=== PATIENT | female | born 1975 | race Caucasian/White ===

== ENCOUNTER → 2018-06-07 06:33 | Outpatient (CLI) | payer BC ==
[2018-06-07 07:29] LABS: ALBUMIN 4.2 g/dL (3.4-5.0); ANION GAP 14.3 mmol/L (8-16); BILIRUBIN - TOTAL 0.99 mg/dL (0.2-1.3); CALCIUM 8.7 mg/dL (8.5-10.1); CREATININE - SERUM 1.1 mg/dL (0.6-1.3); POTASSIUM - SERUM 4.3 mmol/L (3.5-5.1); PROTEIN - SERUM 8.2 g/dL (6.4-8.2)
== END | disposition home or self-care (01) ==
LOC: D.MRI 06:33
PROVIDERS: Internal Medicine Gastroenterology
DX: R50.9 Fever, unspecified (principal); R10.9 Unspecified abdominal pain; K80.80 Other cholelithiasis without obstruction; R93.89 Abnormal findings on diagnostic imaging of other specified body structures

== ENCOUNTER 2018-06-15 09:00 | Day surgery (SDC) | payer BC ==
[2018-06-13 14:42] LABS: BASOPHILS 0.2 % (0-2); EOSINOPHILS 0.6 % (0-7); HEMATOCRIT 40.4 % (36.0-48.0); HEMOGLOBIN 14.3 g/dL (12-16); IMMATURE GRANULOCYTES 0.2 % (0-5); LYMPHOCYTES 31.6 % (15-50); MCH 31.8 pg (26.0-34.0); MCHC 35.4 g/dL (31.0-37.0); MCV 89.8 fL (80.0-100.0); MEAN PLATELET VOLUME 9.9 fL (7.4-10.4); MONOCYTES 9.3 % (2-11); NEUTROPHILS 58.1 % (40-80); PLATELET COUNT 283 10x3/uL (130-400); RDW 12.5 % (11.5-14.5); WBC 6.4 10x3/uL (4.8-10.8)
[2018-06-13 14:51] LABS: ANION GAP 10.7 mmol/L (8-16); CALCIUM 8.4 mg/dL (8.5-10.1); POTASSIUM - SERUM 3.7 mmol/L (3.5-5.1)
[~2018-06-15] VITALS: Ht 157.5 cm; Wt 63.5 kg
[~2018-06-15 09:00] MED LIST: VICTOZA0.6 MG/0.1 SQ
[2018-06-15 09:36] VITALS: BP 109/76; Ht 157.5 cm; Wt 63.5 kg
[2018-06-15 10:21] LABS: CALCIUM 8.5 mg/dL (8.5-10.1); CARBON DIOXIDE 28.9 mmol/L (21.0-32.0); CREATININE - SERUM 0.9 mg/dL (0.6-1.3); POTASSIUM - SERUM 3.9 mmol/L (3.5-5.1)
[2018-06-15] MEDS ORDERED: NORCO 10-325 TA1 TAB PO (11:07)
--- NOTE | 2018-06-15 13:37 | NUR ---
PT LEFT UNIT VIA WC AT 1335
--- NOTE | 2018-06-16 16:36 | OP ---
PATIENT NAME: BAUTISTA STALEY MEDICAL RECORD: [id number] :77 LOCATION:[facility] ADMISSION DATE: SURGEON: MUSTAPHA NEGRO MD DATE OF OPERATION: 06/15/2018 PREOPERATIVE DIAGNOSES: 1. Gallstones. 2. Pelvic fluid collection. 3. Diabetes mellitus. POSTOPERATIVE DIAGNOSES: 1. Gallstones. 2. Pelvic fluid collection. 3. Diabetes mellitus. PROCEDURES: 1. Laparoscopic cholecystectomy. 2. Pelvic laparoscopic lysis of adhesions. SURGEON: Mustapha Negro MD REPORT OF PROCEDURE: The patient's abdomen was prepped and draped in sterile fashion. A cutdown was made on the superior aspect of the umbilicus. The 0 Vicryls were placed in the fascia bilaterally and the fascia was incised with a 15-blade. I then bluntly entered the peritoneal cavity and placed a 12-mm Americo port. Under direct visualization, a 5-mm trocar was placed in the epigastrium and 2 more 5-mm trocars were placed in the right subcostal region. The gallbladder was elevated. There were no inflammatory changes present. The cystic artery and cystic duct were dissected free. These were clipped proximally and distally and ligated in standard fashion. The gallbladder was taken off the liver bed using electrocautery and placed into the right upper quadrant. Any bleeding from the liver bed was then treated with electrocautery. At this point, the ports and insufflation were then removed and the gallbladder was taken out through the umbilicus. We reinserted the Americo port. We inspected the patient's pelvis. There were some adhesions that were present. Mainly, these were of the appendix epiploica and the surrounding fatty tissue to the pelvic doll. This was taken down carefully with sharp dissection. We were able to get into the pelvis and I can see the plane between the rectum and the bladder. There was a little bit of fluid that was there, it did not appear to be infectious. The fluid was more of a physiologic fluid than anything else. I did not find any abscess cavities or pockets. We had the rectum freely mobile. The proximal rectum and distal sigmoid colon were adherent to the left lateral side wall of the pelvis, but this did not appear to be an area of concern from previous CT scan. I went ahead and left this in position. I felt confident there were no other fluid cavities that were there. The bladder itself appeared to be normal with no signs of inflammatory changes. At this point, the ports and insufflation were then removed. The umbilical fascia was closed with interrupted 0 Vicryls times 3. The wounds were then irrigated out with normal saline and infused with 10 mL of 0.25% Marcaine with epinephrine. The skin incisions were all closed with subcutaneous 5-0 Monocryl and dressed appropriately. COMPLICATIONS: None. CONDITION: Stable. OPERATIVE REPORT [id number] BAUTISTA STALEY ANESTHESIA: General endotracheal and local. BLOOD LOSS: Minimal. TRANSINT:[id number] Voice Confirmation ID: [id number] DOCUMENT ID: [id number] CC: Dr. Myriam Velazquez MUSTAPHA NEGRO MD at 1636 CC: DR. MYRIAM VELAZQUEZ and MOI PULIDO MD [id number] DICTATION DATE: 06/15/18 1116 LOCK EXPERT: 06/15/18 1354 [facility] 06/15/18 [place] [id number] [place] [address]
== END 2018-06-15 13:35 | disposition home or self-care (01) ==
LOC: D.OPS 09:00 → D.PAN 11:45 → D.OPS 11:45
PROVIDERS: Anesthesiology; Surgery
DX: K80.20 Calculus of gallbladder without cholecystitis without obstruction (principal); N73.6 Female pelvic peritoneal adhesions (postinfective); Z01.812 Encounter for preprocedural laboratory examination; E11.9 Type 2 diabetes mellitus without complications

== ENCOUNTER 2018-09-29 19:00 | Outpatient (CLI) | payer BC ==
[2018-06-15 09:36] VITALS: BMI 25.6
[~2018-09-29 19:00] MED LIST changes: +NORCO 10-325 TA1 TAB PO
== END 2018-09-29 23:59 | disposition home or self-care (01) ==
LOC: D.MAMMO 19:00
PROVIDERS: ATTEND Family Medicine
DX: Z12.31 Encounter for screening mammogram for malignant neoplasm of breast (principal)

== ENCOUNTER → 2019-02-13 14:14 | Outpatient (CLI) | payer BC ==
[2018-06-15 09:36] VITALS: BMI 25.6
[2019-02-13 15:16] LABS: CREATININE - SERUM 0.9 mg/dL (0.6-1.3)
== END | disposition home or self-care (01) ==
LOC: D.MRI 14:14
PROVIDERS: ATTEND Anesthesiology
DX: M96.1 Postlaminectomy syndrome, not elsewhere classified (principal); M54.14 Radiculopathy, thoracic region

== ENCOUNTER → 2019-02-15 13:32 | Outpatient (CLI) | payer BC ==
[2018-06-15 09:36] VITALS: BMI 25.6
[2019-02-15 14:07] LABS: CALC OSMOLALITY 275 mosm/kg (275-300); CALCIUM 8.4 mg/dL (8.5-10.1); CARBON DIOXIDE 29.1 mmol/L (21.0-32.0); CHLORIDE - SERUM 103 mmol/L (98-107); CREATININE - SERUM 0.8 mg/dL (0.6-1.3); GLUCOSE 88 mg/dL (74-106); POTASSIUM - SERUM 3.8 mmol/L (3.5-5.1); SODIUM 139 mmol/L (136-145); UREA NITROGEN 11 mg/dL (7-18); eGFR NON AFRICAN AMERICAN 84 mL/min (90-120)
== END | disposition home or self-care (01) ==
LOC: D.LAB 13:32
PROVIDERS: ATTEND Internal Medicine Gastroenterology
DX: E11.9 Type 2 diabetes mellitus without complications (principal); R53.1 Weakness

== ENCOUNTER → 2019-06-29 08:07 | Outpatient (CLI) | payer BC ==
[2018-06-15 09:36] VITALS: BMI 25.6
== END | disposition home or self-care (01) ==
LOC: D.MRI 08:07
PROVIDERS: ATTEND Nurse Practitioner Family
DX: M25.562 Pain in left knee (principal)

== ENCOUNTER 2020-03-28 16:00 | Outpatient (CLI) | payer BC ==
[2018-06-15 09:36] VITALS: BMI 25.6
== END 2020-03-29 23:59 | disposition home or self-care (01) ==
LOC: D.MAMMO 16:00
PROVIDERS: ATTEND Family Medicine
DX: Z12.31 Encounter for screening mammogram for malignant neoplasm of breast (principal)